=== PATIENT | male | born 1960 | race Caucasian/White ===

== ENCOUNTER 2024-05-26 11:38 | Emergency (ER) | payer MEDICAID ==
[~2024-05-26] VITALS: Ht 167.6 cm; Wt 105.3 kg
[2024-05-26] MEDS ORDERED: GLIP10TA11 PO (13:05)
[2024-05-26] MEDS ORDERED: FLO0.4C PO (13:05)
[2024-05-26] MEDS ORDERED: LYR25C PO (13:05)
[2024-05-26] MEDS ORDERED: PRAV20TA4 PO (13:05)
[2024-05-26] MEDS ORDERED: ACET325T59 PO (13:05)
[2024-05-26] MEDS ORDERED: LISI10TA27 PO (13:05)
[2024-05-26] MEDS ORDERED: MODA200T48 PO ×2 (13:06)
[2024-05-26 13:21] VITALS: BP 114/58; PULSE 78; RESP 16; TEMP 97.8; O2SAT 97
== END 2024-05-26 13:26 | disposition home or self-care (01) ==
LOC: ER 11:39
DX: G47.411 Narcolepsy with cataplexy (principal); G89.29 Other chronic pain; M54.50 Low back pain, unspecified; Z88.0 Allergy status to penicillin; Z88.8 Allergy status to other drugs, medicaments and biological substances; Z91.041 Radiographic dye allergy status; Z76.0 Encounter for issue of repeat prescription
CPT/HCPCS: 99281

== ENCOUNTER 2024-05-29 14:07 | Emergency (ER) | payer MEDICAID ==
[~2024-05-29] VITALS: Ht 176.5 cm; Wt 106.8 kg
[~2024-05-29 14:07] MED LIST: ACET325T59 PO; FLO0.4C PO; GLIP10TA11 PO; LISI10TA27 PO; LYR25C PO; MODA200T48 PO; PRAV20TA4 PO
[2024-05-29] MEDS ORDERED: iohexol 300mg/ml 100ml inj. ONE (14:33)
[2024-05-29 15:05] LABS: BASOPHILS % (AUTO) 0.6 % (0-1); EOSINOPHILS % (AUTO) 0.5 % (0-6); HEMATOCRIT 43.8 % (42.0-52.0); HEMOGLOBIN 14.9 g/dl (14.0-17.9); LYMPHOCYTES # (AUTO) 1.5 X10'3 (1.1-4.8); LYMPHOCYTES % (AUTO) 18.5 % (21-51); MEAN CORPUSCULAR HEMOGLOBIN 28.4 PG (27.0-31.0); MEAN CORPUSCULAR HGB CONC 33.9 g/dL (33.0-36.5); MEAN CORPUSCULAR VOLUME 83.8 FL (78-98); MEAN PLATELET VOLUME 8.2 FL (7.4-10.4); MONOCYTES # (AUTO) 0.6 X10'3 (0-0.9); MONOCYTES % (AUTO) 7.3 % (2-12); NEUTROPHILS % (AUTO) 73.1 % (42-75); PLATELET COUNT 199 X10'3 (140-440); RED BLOOD COUNT 5.23 X10'6 (4.70-6.10); RED CELL DISTRIBUTION WIDTH 14.3 % (11.5-14.5); WHITE BLOOD COUNT 8.3 X10'3 (4.5-11.0)
[2024-05-29 15:14] LABS: ALANINE AMINOTRANSFERASE 20 U/L (12-78); ALBUMIN 3.7 G/DL (3.4-5.0); ALBUMIN/GLOBULIN RATIO 1.1 (1.1-1.5); ALKALINE PHOSPHATASE 116 IU/L (46-116); ANION GAP 11 (8-16); ASPARTATE AMINO TRANSFERASE 18 U/L (10-37); BILIRUBIN,TOTAL 0.7 MG/DL (0.1-1.0); BLOOD UREA NITROGEN 16 MG/DL (7-18); BUN/CREATININE RATIO 19.8 (10.0-20.0); CALCIUM 8.8 MG/DL (8.5-10.1); CHLORIDE 98 MMOL/L (99-107); CREATININE 0.81 MG/DL (0.60-1.10); GLUCOSE 226 MG/DL (70-104); LIPASE 29 U/L (16-77); POTASSIUM 4.2 MMOL/L (3.5-5.1); SODIUM 131 MMOL/L (135-145); TOTAL CARBON DIOXIDE 22.2 MMOL/L (24-32); TOTAL PROTEIN 7.2 G/DL (6.4-8.2); eCRCL 94 ML/MIN; eGFR > 90 ML/MIN
[2024-05-29 15:27] LABS: BILIRUBIN,URINE NEGATIVE (Neg); CLARITY,URINE CLOUDY (Clear); COLOR,URINE YELLOW (Yellow); GLUCOSE, URINE 250 mg/dl (Neg); KETONES,URINE NEGATIVE (Neg); LEUKOCYTE ESTERASE ,URINE NEGATIVE (Neg); NITRITES, URINE NEGATIVE (Neg); OCCULT BLOOD,URINE NEGATIVE (Neg); PH,URINE 5.5 (4.8-8.0); PROTEIN,URINE NEGATIVE (Neg); UROBILINOGEN,URINE 0.2 E.U/dL (0.2-1.0)
[2024-05-29] MEDS: pantoprazole 40 MG vial IV ONE (15:30)
[2024-05-29] MEDS: normal saline 1000ml 1,000 ML IV ONE (15:31)
[2024-05-29 15:36] LABS: UA COLLECTION TYPE URINAL
[2024-05-29 15:38] LABS: BACTERIA,URINE 1+ /HPF (Neg); MUCUS STRANDS MODERATE /LPF (Neg); RBC,URINE 0-2 /HPF (0-2); SQUAMOUS EPITHELIAL CELL,UR MANY /LPF (FEW); WBC,URINE 0-4 /HPF (0-4)
[2024-05-29] MEDS: acetaminophen 1,000mg/100ml IV 100 ML IV ONE (15:56)
[2024-05-29] MEDS: ondansetron/PF 4mg/2ml inj IV ONE (15:57)
[2024-05-29] MEDS: pravastatin 10mg tablet PO ONE (16:40)
[2024-05-29] MEDS: pregabalin 75mg capsule PO ONE ×2 (17:31→17:43)
[2024-05-29] MEDS: pravastatin 40mg tablet PO ONE (17:32)
[2024-05-29] MEDS: lisinopril 10 MG tablet PO ONE (17:42)
[2024-05-29] MEDS: modafinil 100mg tablet PO ONE (17:43)
[2024-05-29] MEDS: tamsulosin 0.4mg capsule PO ONE (17:43)
[2024-05-29] MEDS: glipizide 5mg tablet PO ONE (17:45)
[2024-05-29 18:26] VITALS: BP 136/87; PULSE 82; RESP 18; TEMP 98.1; O2SAT 95
== END 2024-05-29 17:51 | disposition home or self-care (01) ==
LOC: ER 14:08
DX: G89.29 Other chronic pain (principal); M54.50 Low back pain, unspecified; G47.411 Narcolepsy with cataplexy; K92.0 Hematemesis; Z88.8 Allergy status to other drugs, medicaments and biological substances; Z91.041 Radiographic dye allergy status; Z79.899 Other long term (current) drug therapy; Z79.84 Long term (current) use of oral hypoglycemic drugs
CPT/HCPCS: 36415; 74176; 80053; 81001; 83690; 85025; 86885; 86900; 86901; 96361; 96374; 96375; 99285; J0131; J2405; J2470; J7030; 96365; Q9967

== ENCOUNTER 2024-05-29 21:22 | Emergency (ER) | payer MEDICAID ==
[~2024-05-29] VITALS: Ht 175.3 cm; Wt 108.2 kg
[2024-05-29 21:30] VITALS: TEMP 98.3; O2SAT 97
[2024-05-29] MEDS: traMADol 50MG tablet PO ONE (22:08)
[2024-05-29] MEDS: modafinil 100mg tablet PO SCH (22:08)
--- NOTE | 2024-05-29 22:23 | NUR ---
pt seen earlier today. pt back for med refill.
[2024-05-29 22:38] VITALS: BP 111/77; PULSE 98; RESP 16
== END 2024-05-29 22:39 | disposition home or self-care (01) ==
LOC: ER 21:23
DX: G89.29 Other chronic pain (principal); M54.50 Low back pain, unspecified; G47.411 Narcolepsy with cataplexy; Z88.8 Allergy status to other drugs, medicaments and biological substances; Z91.041 Radiographic dye allergy status; Z79.899 Other long term (current) drug therapy
CPT/HCPCS: 82948; 99283

== ENCOUNTER 2024-05-31 17:33 | Emergency (ER) | payer MEDICAID, OTHER ==
[~2024-05-31] VITALS: Ht 175.3 cm; Wt 116.8 kg
[2024-05-31] MEDS ORDERED: INSU200I INJ (18:29)
[2024-05-31] MEDS ORDERED: LISI10TA27 PO (18:37)
[2024-05-31] MEDS ORDERED: GLIP10TA11 PO (18:37)
[2024-05-31] MEDS ORDERED: [UNRECOGNIZED DRUG - CODE] PERCUTAN (18:42)
[2024-05-31] MEDS: ALPRAZolam 0.5mg tablet PO ONE (19:25)
[2024-05-31] MEDS: insulin regular, human 10 units/0.1 ml syringe SQ ONE (19:26)
[2024-05-31 19:42] VITALS: BP 116/88; PULSE 105; RESP 18; TEMP 98.6; O2SAT 98
== END 2024-05-31 19:47 | disposition home or self-care (01) ==
LOC: ER 17:33
DX: E11.65 Type 2 diabetes mellitus with hyperglycemia (principal); Z88.8 Allergy status to other drugs, medicaments and biological substances; Z91.041 Radiographic dye allergy status; Z79.899 Other long term (current) drug therapy; Z79.4 Long term (current) use of insulin
CPT/HCPCS: 82948; 96372; 99283; J1815

== ENCOUNTER 2024-06-02 13:58 | Emergency (ER) | payer MEDICAID, OTHER ==
[~2024-06-02] VITALS: Ht 177.8 cm; Wt 107.7 kg
[~2024-06-02 13:58] MED LIST changes: +INSU200I INJ; +[UNRECOGNIZED DRUG - CODE] PERCUTAN
[2024-06-02 13:59] VITALS: BP 168/96; PULSE 98; TEMP 97.8; O2SAT 98
[2024-06-02] MEDS ORDERED: INSU200I INJ (14:32)
[2024-06-02] MEDS ORDERED: LISI10TA27 PO (14:32)
[2024-06-02] MEDS ORDERED: [UNRECOGNIZED DRUG - CODE] PERCUTAN (14:32)
[2024-06-02] MEDS ORDERED: GLIP10TA11 PO (14:32)
[2024-06-02 14:37] VITALS: RESP 18
== END 2024-06-02 14:38 | disposition home or self-care (01) ==
LOC: ER 13:59
DX: Z00.00 Encounter for general adult medical examination without abnormal findings (principal); Z76.0 Encounter for issue of repeat prescription; Z91.148 Patient's other noncompliance with medication regimen for other reason; Z91.041 Radiographic dye allergy status; Z88.8 Allergy status to other drugs, medicaments and biological substances; Z88.0 Allergy status to penicillin; Z79.899 Other long term (current) drug therapy
CPT/HCPCS: 82948; 99281; 99282